=== PATIENT | female | born 1975 | race Caucasian/White ===

== ENCOUNTER 2016-07-29 16:57 | Emergency (ER) | payer OTHER ==
[~2016-07-29] VITALS: Ht 154.9 cm; Wt 110.1 kg
[~2016-07-29 16:57] MED LIST: ALBU0.08 NEB; DOCU100C PO; FERR1TAB23 PO
[2016-07-29 17:11] VITALS: BP 146/97; PULSE 83; TEMP 36.8; O2SAT 96; Ht 154.9 cm; Wt 110.1 kg
[2016-07-29] MEDS ORDERED: NORCO 5/325MG HOME PACK PO ONE (18:15)
[2016-07-29] MEDS ORDERED: PENICILLIN HOME PACK 250MG (4)BTL PO ONE (18:15)
[2016-07-29] MEDS ORDERED: PENI-82 PO (18:19)
--- NOTE | 2016-07-29 18:19 | EMERGENCY ROOM VISIT NOTE ---
ED Visit Note First contact with patient: 18:02 CHIEF COMPLAINT: Toothache HISTORY OF PRESENT ILLNESS: This 40-year-old female patient presented to the emergency department ambulatory with a progressive toothache for past 3 days. The patient believes it is coming from left lower tooth. The pain is now steady and severe and radiates to the face. The patient does not a dentist appointment set up but states she will call tomorrow morning. They rate their pain a 7/10 and the ibuprofen and Tylenol they have been taking has not relieved the pain. Denies facial swelling or fever. The patient denies any discharge from the mouth. The patient states she has been taking her tramadol. REVIEW OF SYSTEMS: A 6 system review of systems was completed with positives and pertinent negatives listed in the HPI. ALLERGIES: Amoxicillin; has tolerated penicillin, morphine MEDICATIONS: See nursing notes PMH: GERD SOCIAL HISTORY: The patient lives locally. She does not smoke PHYSICAL EXAM: Vitals are noted on the nurse's note and reviewed by myself. Vital signs stable. Temperature 36.8C orally. GENERAL: This is a 40-year-old female, in no acute distress, nondiaphoretic, well-developed well-nourished. Mouth: The left lower tooth is very carious and the gum is not swollen but is tender around it, without any discharge or signs of an abscess. The remainder of the pharynx and tonsils are without erythema, edema, or exudate. The airway is patent. There is no facial swelling, cervical or submandibular lymphadenopathy. The patient appears uncomfortable and in pain. The patient has overall fair dental hygiene. ED COURSE: The patient was seen and examined. Previous visits were reviewed. The patient does not have a fever. She is nontoxic in appearance. There is no facial swelling. The patient has taken a few doses of penicillin and states the swelling she did have has improved. She'll be placed on Pen-Vee K. I did review the prescription drug monitoring website. The patient appears to fill Ultram regularly and most recently 2 days ago. I advised her to continue the Ultram. I did give her a take-home pack of Perkins. She should follow-up with her dentist. She should return with worsening symptoms. Problem List Medical Problems: (1) Cholecystectomy Status: Resolved (2) Chronic obstructive lung disease Status: Chronic (3) Esophageal Reflux Status: Chronic (4) History of - tubal ligation Status: Resolved (5) Migraine Unspecified W/O Intract Mgrn W/O Status Migrainosus Status: Chronic (6) Tubal Ligation Status Status: Resolved Current/Historical Medications Scheduled Ferrous Sulfate (Iron), 325 MG PO DAILY Pantoprazole (Protonix), 40 MG PO QAM Penicillin V Potassium (Veetids), 500 MG PO QID Probiotic Product (Probiotic), 1 CAP PO DAILY Scheduled PRN Albuterol Hfa (Ventolin Hfa), 2 PUFFS INH UD PRN for Shortness of Breath Albuterol Soln (Proventil 0.083% 2.5MG/3ML), 2.5 MG NEB UD PRN for SOB/Wheezing Tramadol (Ultram), 50 MG PO BID PRN for Pain Allergies Coded Allergies: Amoxicillin (Verified Allergy, Unknown, hives, 07/29/16) Morphine (Verified Adverse Reaction, Unknown, chest tightness, 07/29/16) Vital Signs Date Time Temp Pulse Resp B/P Pulse Ox O2 Delivery O2 Flow Rate FiO2 07/29/16 17:11 36.8 83 20 146/97 96 Room Air Departure Information Impression Primary Impression: Dental caries Dispostion Home / Self-Care Condition GOOD Prescriptions Penicillin V Potassium (Veetids) 500 Mg Tab 500 MG PO QID for 10 Days, #40 TAB Prov: Eliza Davis PA-C 07/29/16 Referrals Alexy Rascon M.D. (PCP) Patient Instructions Dental Abscess, [facility] Additional Instructions Pen-Vee K 4 times daily for 10 days.Perkins one tablet every 6 hours if needed for worse pain. Do not drink or drive while taking Perkins and do not take with Tylenol. Followup with a dentist for definitive management of your tooth. Return with high fevers, worsening pain or swelling. Continue your tramadol as prescribed, as needed
[2016-08-06] MEDS ORDERED: MISCCAP80 PO (09:40)
[2016-08-06] MEDS ORDERED: VNTHFA/IN INH (12:55)
[2016-08-06] MEDS ORDERED: PANT40TA PO (13:50)
[2016-08-06] MEDS ORDERED: TRAM-10 PO (17:19)
== END 2016-07-29 18:33 | disposition home or self-care (01) ==
LOC: C.EDB 16:58 → C.EDD 18:33
DX: K02.9 Dental caries, unspecified (principal); K21.9 Gastro-esophageal reflux disease without esophagitis; Z90.49 Acquired absence of other specified parts of digestive tract; J44.9 Chronic obstructive pulmonary disease, unspecified; Z98.51 Tubal ligation status; Z79.899 Other long term (current) drug therapy

== ENCOUNTER 2016-08-06 21:18 | Emergency (ER) | payer OTHER ==
[~2016-08-06] VITALS: Ht 152.4 cm; Wt 110.5 kg
[~2016-08-06 21:18] MED LIST changes: -DOCU100C PO; +MISCCAP80 PO; +PANT40TA PO; +PENI-82 PO; +TRAM-10 PO; +VNTHFA/IN INH
[2016-08-06 21:22] VITALS: TEMP 36.6; Ht 152.4 cm; Wt 110.5 kg
[2016-08-06] MEDS ORDERED: SODIUM CHLORIDE 0.9% 1000ML 1,000 ML IV ONE (22:00)
[2016-08-06] MEDS ORDERED: HYDROCODONE/ACETAMOPHEN 5/325MG TAB PO ONE (22:00)
--- NOTE | 2016-08-06 22:01 | EMERGENCY ROOM VISIT NOTE ---
History Report prepared by Shelly: Aparna Vizcarra Under the Supervision of: Dr. Cale Varghese M.D. First contact with patient: 21:54 Chief Complaint: OTHER COMPLAINT Stated Complaint: LOCK JAW,NECK PAIN,HEADACHE History of Present Illness The patient is a 40 year old female who presents to the Emergency Room with complaints of constant symptoms of locked jaw beginning a few days prior to arrival. The patient states that she had a infection of her mouth 2 weeks ago and was on Penicillin which she has finished. 10 days ago the patient had the lower tooth pulled. Since then she has had trouble opening her jaw and has a very limited range of motion. She does notes a headache began last night. She denies recent fever. The patient's last Tramadol dosage was 4 hours prior to arrival. 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 Review of Systems All systems have been listed, reviewed, and are negative other than those previously mentioned. Please see Additional Medical History Sheet. Past Medical & Surgical Medical Problems: (1) Cholecystectomy (2) Chronic obstructive lung disease (3) Esophageal Reflux (4) History of - tubal ligation (5) Migraine Unspecified W/O Intract Mgrn W/O Status Migrainosus (6) Tubal Ligation Status Family History Diabetes mellitus FH: heart disease FHx: gallbladder disease FHx: lung disease Hypertension Social History Smoking Status: Never Smoker Alcohol Use: none Marital Status: Housing Status: lives with family Occupation Status: employed Current/Historical Medications Scheduled Pantoprazole (Protonix), 40 MG PO QAM Probiotic Product (Probiotic), 1 CAP PO DAILY Scheduled PRN Albuterol Hfa (Ventolin Hfa), 2 PUFFS INH UD PRN for Shortness of Breath Albuterol Sulf (Proventil 0.083% 2.5MG/3ML), 2.5 MG NEB UD PRN for SOB/Wheezing Tramadol (Ultram), 50 MG PO BID PRN for Pain Allergies Coded Allergies: Amoxicillin (Verified Allergy, Unknown, hives, 07/29/16) Morphine (Verified Adverse Reaction, Unknown, chest tightness, 07/29/16) Physical Exam Vital Signs Date Time Temp Pulse Resp B/P Pulse Ox O2 Delivery O2 Flow Rate FiO2 08/06/16 22:24 92 18 173/88 96 Room Air 08/06/16 21:22 36.6 109 16 140/86 97 Room Air Physical Exam GENERAL: Patient awake, alert, oriented x 3 and in moderate distress. Patient follows commands. Patient does not appear toxic. Patient is adequately hydrated and well-nourished. SKIN: No erythema, pallor, cyanosis or rash HEENT: Normal head, pupils equal, reactive to light and accommodation. Ears normal. Difficult to open mouth, missing left lower first bite cuspid #21, has bilateral tenderness to submandibular adenopathy with left greater than right. Neck: Without adenopathy, no neck vein distention. LUNGS: Clear to auscultation. No wheezes, no rales, no rhonchi. HEART: No murmurs. No gallops. No rubs ABDOMEN: Soft nontender. EXTREMITIES: No signs of trauma or infection. NEUROLOGIC: Cranial nerves II-XII within normal limits. No gross motor sensory function deficits. Medical Decision & Procedures Laboratory Results 08/06/16 22:15 Red Blood Count 4.74, Mean Corpuscular Volume 85.7, Mean Corpuscular Hemoglobin 28.3, Mean Corpuscular Hemoglobin Concent 33.0, Mean Platelet Volume 9.3, Neutrophils (%) (Auto) 66.0, Lymphocytes (%) (Auto) 18.2, Monocytes (%) (Auto) 8.6, Eosinophils (%) (Auto) 6.7, Basophils (%) (Auto) 0.3, Neutrophils # (Auto) 5.84, Lymphocytes # (Auto) 1.61, Monocytes # (Auto) 0.76, Eosinophils # (Auto) 0.59, Basophils # (Auto) 0.03 08/06/16 22:15 Test 08/06/16 22:15 White Blood Count 8.85 K/uL (4.8-10.8) Red Blood Count 4.74 M/uL (4.2-5.4) Hemoglobin 13.4 g/dL (12.0-16.0) Hematocrit 40.6 % (37-47) Mean Corpuscular Volume 85.7 fL (80-100) Mean Corpuscular Hemoglobin 28.3 pg (25-34) Mean Corpuscular Hemoglobin Concent 33.0 g/dl (32-36) Platelet Count 302 K/uL (130-400) Mean Platelet Volume 9.3 fL (7.4-10.4) Neutrophils (%) (Auto) 66.0 % Lymphocytes (%) (Auto) 18.2 % Monocytes (%) (Auto) 8.6 % Eosinophils (%) (Auto) 6.7 % Basophils (%) (Auto) 0.3 % Neutrophils # (Auto) 5.84 K/uL (1.4-6.5) Lymphocytes # (Auto) 1.61 K/uL (1.2-3.4) Monocytes # (Auto) 0.76 K/uL (0.11-0.59) Eosinophils # (Auto) 0.59 K/uL (0-0.5) Basophils # (Auto) 0.03 K/uL (0-0.2) RDW Standard Deviation 45.0 fL (36.4-46.3) RDW Coefficient of Variation 14.3 % (11.5-14.5) Immature Granulocyte % (Auto) 0.2 % Immature Granulocyte # (Auto) 0.02 K/uL (0.00-0.02) Anion Gap 11.0 mmol/L (3-11) Est Creatinine Clear Calc Drug Dose 116.8 ml/min Estimated GFR () 120.2 Estimated GFR (Non- 103.7 BUN/Creatinine Ratio 17.7 (10-20) Calcium Level 8.7 mg/dl (8.5-10.1) Chemistry Specimen Hemolysis Laboratory results as stated above per my review. Medications Administered Medications (Trade) Dose Ordered Sig/Rogelio Route Start Time Stop Time Status Last Admin Dose Admin Acetaminophen/ Hydrocodone Bitart 1 tab 1 tab ONE ONCE PO 08/06/16 22:00 08/06/16 22:04 DC 08/06/16 22:26 1 TAB Sodium Chloride (Nss 1000ml) 1,000 ml @ 999 mls/hr Q1H1M ONCE IV 08/06/16 22:00 08/06/16 23:00 DC 08/06/16 22:26 999 MLS/HR ED Course 2155: Past medical records reviewed. The patient was evaluated in room C12. A complete history and physical examination was performed. 2200: Sodium Chloride 1,000 ml @ 999 mls/hr IV, Burna Tab 1 tab PO. 2312: I reevaluated the patient. Medical Decision Nurses notes reviewed. Medical history sheet reviewed. Differential diagnosis includes but is not limited to: dental abscess, Ledwig's angina, submandibular adenopathy. Multiple labs and imaging were obtained. Please see above. White count is not elevated. CT is pending. Case was signed off to Dr. Potter at 2340. Impression Primary Impression: Submandibular lymphadenopathy Scribe Attestation The scribe's documentation has been prepared under my direction and personally reviewed by me in its entirety. I confirm that the note above accurately reflects all work, treatment, procedures, and medical decision making performed by me. Departure Information Referrals Alexy Rascon M.D. (PCP) Patient Instructions [facility]
[2016-08-06] MEDS ORDERED: ALBINS/ NEB (22:19)
[2016-08-06] MEDS ORDERED: OPTIRAY 320 IV PRN (22:30)
[2016-08-06 22:37] LABS: BASO % 0.3 %; BASO ABS # 0.03 K/uL (0-0.2); COMPLETE YES; EOS % 6.7 %; HEMATOCRIT 40.6 % (37-47); IG% 0.2 %; LYMPH % 18.2 %; LYMPH ABS # 1.61 K/uL (1.2-3.4); MEAN CELL VOLUME 85.7 fL (80-100); MEAN CORPUSCULAR HEMOGLOBIN 28.3 pg (25-34); MEAN PLATELET VOLUME 9.3 fL (7.4-10.4); MONO % 8.6 %; PLATELET COUNT 302 K/uL (130-400); RED BLOOD COUNT 4.74 M/uL (4.2-5.4); WHITE BLOOD COUNT 8.85 K/uL (4.8-10.8)
[2016-08-06 23:07] LABS: BUN/CREATININE RATIO 17.7 (10-20); CALCIUM 8.7 mg/dl (8.5-10.1); CREATININE 0.73 mg/dl (0.60-1.20); POTASSIUM 4.1 mmol/L (3.5-5.1)
[2016-08-07] MEDS ORDERED: OXYC-57 PO (00:35)
[2016-08-07] MEDS ORDERED: PERCOCET HOME PACK PO ONE (00:45)
[2016-08-07 00:51] VITALS: BP 137/89; PULSE 87; O2SAT 96
--- NOTE | 2016-08-07 03:38 | EMERGENCY ROOM VISIT NOTE ---
ED Visit Note First contact with patient: 23:44 This case was signed out to me at change of shift awaiting results of a CT scan of the neck. Stat rad interpreted the CT scan as follows: Evaluation of the oral cavity is somewhat limited due to streak artifact from dental hardware. No drainable fluid collection. No abnormal mass lesions. The airway is patent. No cervical adenopathy. I see structures are unremarkable. Sinuses of lung apices are clear. Few borderline enlarged mediastinal lymph nodes which are nonspecific. Consider clinical and imaging follow-up. I reviewed these results with the patient. She voiced concern about the limited opening of her mouth. I suggested that she is a straw to take in liquids as well as soups or milkshake. She was encouraged to follow up with her dentist later today for a recheck. She was given a Percocet home pack to use for pain. I did reference the [place] drug monitoring program. The patient does receive prescriptions regularly for tramadol. There are no other concerning findings. The patient was given a prescription for Percocet to use if the pain persisted. She was told to return to the emergency department she developed any worsening symptoms such as fever or increased neck pain.
--- NOTE | 2016-08-07 06:57 | DIAGNOSTIC IMAGING REPORT ---
CT SOFT TISSUE NECK WITH CT DOSE: 780.19 mGy.cm CLINICAL HISTORY: Neck pain. Dental abscess. NECK SWELLING. HEADACHE. TECHNIQUE: Helical images were acquired during intravenous administration of 91 cc of Optiray 320. COMPARISON STUDY: None. FINDINGS: The visualized portions of the lung apices are unremarkable. No thyroid masses are visualized. No salivary gland masses are visualized. There are no pathologically enlarged cervical lymph nodes. No necrotic nodes are evident. There are no fluid collections suspicious for abscess. There is no evidence of airway compromise. No mucosal space masses are visualized. The upper chest, there are borderline enlarged paratracheal prevascular and subcarinal lymph nodes. IMPRESSION: 1. Borderline enlarged mediastinal lymph nodes. 2. No evidence of cervical lymphadenopathy 3. No pathologic cervical masses. No evidence of abscess. No evidence of airway compromise. Electronically signed by: Eric Daigle M.D. 08/07/2016 6:55 AM Dictated Date/Time: 08/07/2016 6:51 AM
== END 2016-08-07 00:51 | disposition home or self-care (01) ==
LOC: C.EDB 21:18 → C.EDC 08-07 00:51
DX: R59.0 Localized enlarged lymph nodes (principal); J44.9 Chronic obstructive pulmonary disease, unspecified; K21.9 Gastro-esophageal reflux disease without esophagitis; Z83.3 Family history of diabetes mellitus; Z82.49 Family history of ischemic heart disease and other diseases of the circulatory system; Z83.79 Family history of other diseases of the digestive system; Z83.6 Family history of other diseases of the respiratory system

== ENCOUNTER 2016-12-30 19:06 | Emergency (ER) | payer OTHER ==
[~2016-12-30] VITALS: Ht 162.6 cm; Wt 90.0 kg
[~2016-12-30 19:06] MED LIST changes: +ALBINS/ NEB; -ALBU0.08 NEB; -FERR1TAB23 PO; +OXYC-57 PO; -PENI-82 PO
[2016-12-30 19:12] VITALS: TEMP 36.7; Ht 162.6 cm; Wt 90.0 kg
--- NOTE | 2016-12-30 19:50 | DIAGNOSTIC IMAGING REPORT ---
RIGHT KNEE 3 VIEWS CLINICAL HISTORY: right knee pain Right COMPARISON: None. DISCUSSION: The bones and joint spaces appear intact. There is no evidence of fracture, dislocation or bony disease. There is no evidence for soft tissue swelling. IMPRESSION: Negative study. Electronically signed by: Ammon Chavarria M.D. 12/30/2016 7:49 PM Dictated Date/Time: 12/30/2016 7:49 PM
--- NOTE | 2016-12-30 20:06 | EMERGENCY ROOM VISIT NOTE ---
ED Visit Note First contact with patient: 19:18 CHIEF COMPLAINT: Right knee pain HISTORY OF PRESENT ILLNESS: This 41-year-old female patient presents to the emergency department in a wheelchair approximately one week after sustaining an injury to the right knee she fell down some steps. Patient states she was walking down the steps, when she lost balance, grabbed the railing, and hit her outer right knee against the wall. She states since this injury, she has experienced a popping sensations of the outside of the knee, with associated pain down the leg. She also feels that there is swelling and fluid in the knee. She has been using Tylenol and her prescribed tramadol for the knee pain minimal improvement. She has also tried several different [id number] braces, however states they have not fit her knee properly. The patient denies any other injuries besides their knee. The patient does report swelling anteriorly and bruising medially. She denies injury to the medial aspect of the knee. There is pain, worse on the lateral aspect. They rate the pain as throbbing and 6/10. The patient states they are able to walk on it, however this causes increased pain. No numbness or tingling. No previous injuries to this knee. No ankle, foot or hip pain. REVIEW OF SYSTEMS: A 6 system review of systems was completed with positives and pertinent negatives listed in the HPI. ALLERGIES: Amoxicillin, morphine MEDICATIONS: Protonix, tramadol, albuterol, probiotic PMH: GERD, carpal tunnel syndrome, asthma SOCIAL HISTORY: Patient lives locally with her family. She denies drug, alcohol , tobacco use. Patient is employed. PHYSICAL EXAM: Vital Signs: Reviewed Nurse's notes, vital signs stable. GENERAL : 41-year-old female, no acute distress, but appears in pain, well-developed, well-nourished. MENTAL STATUS: Alert, oriented to person place and time, and cooperative. MUSCULOSKELETAL: The right knee is not obviously swollen. There is no ecchymosis. There is no joint effusion present. The patient is tender on the lateral aspect. There is no joint line tenderness. The patella does appropriately subluxate. Range of motion is full. Strength of the quads and hamstrings is 5/5. Anat's is negative. Jones's and Anterior Drawer tests are negative. There is discomfort on the lateral aspect with varus and valgus stressing. The foot and toes are warm and well-perfused. Dorsalis pedis pulse 2+. Sensation to pain and light touch is intact. Capillary refill less than 2 seconds. EMERGENCY DEPARTMENT COURSE: I examined the patient. X-rays of the right knee were reviewed by myself and read by radiology and reveal DISCUSSION: The bones and joint spaces appear intact. There is no evidence of fracture, dislocation or bony disease. There is no evidence for soft tissue swelling. IMPRESSION: Negative study. The patient refused a knee immobilizer, stating this would make it too difficult for her to walk up and down stairs and carrying her baby. She also refused crutches for the same reason. The patient was discharged home in good condition. DIAGNOSIS: Right Knee pain DIFFERENTIAL DIAGNOSIS: Knee sprain, contusion, patella fracture, tibia or fibula fracture, distal femur fracture, joint effusion, and others. DISCHARGE INSTRUCTIONS: Ibuprofen(Motrin, Advil) may be used for fever or pain. Use 600mg every six hours as needed. Take with food. Avoid using more than 2400mg in a 24 hour period. Do not use 2400mg per day for more than three consecutive days without physician direction. Prolonged inappropriate use can lead to stomach upset or ulcers. (AND/OR) Acetaminophen(Tylenol) may be used for fever or pain. Use 1000mg every six hours as needed. Avoid using more than 4000mg in a 24 hour period. You may alternate Tylenol/ibuprofen every 3 hours for increased pain relief. Continue to use your regularly prescribed tramadol for breakthrough pain. Ice compresses for 20 minutes at a time four times daily for 2-3 days. Rest and elevate your injury. Return to the ER immediately for any numbness, tingling, severe pain, extreme swelling in the extremity or as needed. Call [facility], [phone], if no improvement in 2-3 days to arrange follow up for your injury. Follow-up with your primary care physician in 2 days at your regularly scheduled appointment for a recheck of your current condition. Problem List Medical Problems: (1) Cholecystectomy Status: Resolved (2) Chronic obstructive lung disease Status: Chronic (3) Esophageal Reflux Status: Chronic (4) History of - tubal ligation Status: Resolved (5) Migraine Unspecified W/O Intract Mgrn W/O Status Migrainosus Status: Chronic (6) Tubal Ligation Status Status: Resolved Current/Historical Medications Scheduled Pantoprazole (Protonix), 40 MG PO QAM Probiotic Product (Probiotic), 1 CAP PO DAILY Scheduled PRN Albuterol Hfa (Ventolin Hfa), 2 PUFFS INH UD PRN for Shortness of Breath Albuterol Sulf (Proventil 0.083% 2.5MG/3ML), 2.5 MG NEB UD PRN for SOB/Wheezing Oxycodone/Acetaminophen 5MG/325MG (Percocet 5MG/325MG), 1 TABLET PO Q4H PRN for Pain Tramadol (Ultram), 50 MG PO BID PRN for Pain Allergies Coded Allergies: Amoxicillin (Verified Allergy, Unknown, hives, 07/29/16) Morphine (Verified Adverse Reaction, Unknown, chest tightness, 07/29/16) Vital Signs Date Time Temp Pulse Resp B/P (MAP) Pulse Ox O2 Delivery O2 Flow Rate FiO2 12/30/16 19:12 36.7 100 18 98 Room Air Departure Information Impression Primary Impression: Right knee pain Dispostion Home / Self-Care Condition GOOD Referrals Alexy Rascon M.D. (PCP) [facility] Patient Instructions ED Knee Pain [facility], [facility] Additional Instructions ORTHOPEDIC INSTRUCTIONS: Ibuprofen(Motrin, Advil) may be used for fever or pain. Use 600mg every six hours as needed. Take with food. Avoid using more than 2400mg in a 24 hour period. Do not use 2400mg per day for more than three consecutive days without physician direction. Prolonged inappropriate use can lead to stomach upset or ulcers. (AND/OR) Acetaminophen(Tylenol) may be used for fever or pain. Use 1000mg every six hours as needed. Avoid using more than 4000mg in a 24 hour period. You may alternate Tylenol/ibuprofen every 3 hours for increased pain relief. Continue to use your regularly prescribed tramadol for breakthrough pain. Ice compresses for 20 minutes at a time four times daily for 2-3 days. Rest and elevate your injury. Return to the ER immediately for any numbness, tingling, severe pain, extreme swelling in the extremity or as needed. Call [facility], [phone], if no improvement in 2-3 days to arrange follow up for your injury. Follow-up with your primary care physician in 2 days at your regularly scheduled appointment for a recheck of your current condition. Problem Qualifiers Primary Impression: Right knee pain Chronicity: acute Qualified Codes: M25.561 - Pain in right knee
[2016-12-30 20:13] VITALS: BP 149/103; PULSE 100; O2SAT 98
== END 2016-12-30 20:14 | disposition home or self-care (01) ==
LOC: C.EDB 19:07 → C.EDD 20:14
DX: M25.561 Pain in right knee (principal); J44.9 Chronic obstructive pulmonary disease, unspecified; K21.9 Gastro-esophageal reflux disease without esophagitis; Z91.81 History of falling